=== PATIENT | male | born 1950 | race Two or more races ===

== ENCOUNTER 2022-01-22 13:55 | Emergency (ER) | payer OTHER ==
[~2022-01-22] VITALS: Ht 170.2 cm; Wt 70.3 kg
[2022-01-22 14:23] VITALS: BP 132/84
[2022-01-22] MEDS ORDERED: BENZ-13 PO (15:08)
--- NOTE | 2022-01-22 15:20 | NUR ---
Patient discharged to home in stable condition. Written and verbal after care instructions given. Patient verbalizes understanding of instruction.
== END 2022-01-22 15:20 | disposition home or self-care (01) ==
LOC: ER 14:00
DX: U07.1 COVID-19 (principal); I10 Essential (primary) hypertension; E78.5 Hyperlipidemia, unspecified; K21.9 Gastro-esophageal reflux disease without esophagitis